=== PATIENT | female | born 1990 | race Caucasian/White ===

== ENCOUNTER 2018-01-03 21:29 | Emergency (ER) | payer OTHER ==
[~2018-01-03] VITALS: Ht 154.9 cm; Wt 47.2 kg
[2018-01-03 22:03] VITALS: BP 111/68
[2018-01-03] MEDS ORDERED: ACETAMINOPHEN-1 EAC1 ORAL (22:37)
[2018-01-03 22:40] VITALS: BP 111/68
--- NOTE | 2018-01-04 01:10 | Emergency Room Report ---
History of Present Illness General Chief Complaint: Pain Source: Patient Present Illness HPI 27-year-old female presents ED for evaluation of right toe pain. States that she went to gym today for many hours. States that she tried on some new shoes today and felt a sharp pain in her right fifth toe. Pain is persisted since. 7 out of 10, throbbing, nonradiating. Difficult to bear weight. No other injuries. No other aggravating relieving factors. Denies any other associated symptoms Allergies: Coded Allergies: PENICILLINS (Verified Allergy, Unknown, 01/03/18) Patient History Past Medical History: asthma, psych hx Past Surgical History: none Pertinent Family History: none Social History: Denies: smoking, alcohol use, drug use Last Menstrual Period: unknown Now: No : 0 Para: 0 Immunizations: UTD Reviewed Nursing Documentation: PMH: Agreed; PSxH: Agreed Nursing Documentation-PMH Hx Asthma: Yes History Of Psychiatric Problem: Yes - Anxiety, Depression Review of Systems All Other Systems: negative except mentioned in HPI Physical Exam Vital Signs Date Time Temp Pulse Resp B/P (MAP) Pulse Ox O2 Delivery O2 Flow Rate FiO2 01/03/18 21:58 97.8 73 15 111/68 98 Room Air 97.9 Sp02 EP Interpretation: reviewed, normal General Appearance: no apparent distress, alert, GCS 15, non-toxic Head: normocephalic Eyes: bilateral eye normal inspection, bilateral eye PERRL ENT: normal ENT inspection Neck: normal inspection Respiratory: normal inspection Cardiovascular #1: normal inspection Gastrointestinal: normal inspection Rectal: deferred Genitourinary: no CVA tenderness Musculoskeletal: tender - R 5th toe. mild swelling Neurologic: alert, oriented x3, responsive, motor strength/tone normal, sensory intact, speech normal Psychiatric: normal inspection Skin: normal inspection Lymphatic: normal inspection Medical Decision Making Diagnostic Impression: Primary Impression: Toe injury Qualified Codes: S99.921A - Unspecified injury of right foot, initial encounter ER Course Hospital Course 27-year-old F presents to ED complaining of R toe pain Differential diagnoses include: Fracture, dislocation, sprain, contusion Clinical course Patient placed on stretcher. After initial history and physical, I ordered xrays of R toes. patient declined pain meds Xrays read shows no acute fracture/dislocation. some minimal soft tissue swelling Discussed findings with patient. We will david tape toe for comfort. Patient states her father is a doctor and she will see him on Friday. Recommended ice, elevation. Diagnosis - toe injury Stable and discharged to home with prescription for Tylenol #3. apply ice, keep elevated. weight bear as tolerated. Followup with PMD. Return to ED if symptoms recur or worsen Other X-Ray Diagnostic Results Other X-Ray Diagnostic Results : X-Ray ordered: R toes # of Views/Limited Vs Complete: 3 View Indication: Pain EP Interpretation: Yes Interpretation: no dislocation, no fractures Impression: No acute disease Electronically Signed by: Electronically signed by Jacob Rao MD Last Vital Signs Date Time Temp Pulse Resp B/P (MAP) Pulse Ox O2 Delivery O2 Flow Rate FiO2 01/03/18 22:40 97.9 73 15 111/68 98 Room Air 97.9 Status: improved Disposition: HOME, SELF-CARE Condition: Stable Scripts Acetaminophen With Codeine (T#3) (TYLENOL #3 TAB*) Y Tab 1 TAB ORAL Q8H PRN for For Pain, #20 TAB Prov: Jacob Rao MD 01/03/18 Patient Instructions: Contusion, [id number] Jacob Rao MD Jan 04, 2018 01:10
== END 2018-01-03 22:40 | disposition home or self-care (01) ==
LOC: EMR 21:55
DX: S99.921A Unspecified injury of right foot, initial encounter (principal); X58.XXXA Exposure to other specified factors, initial encounter; Y93.A9 Activity, other involving cardiorespiratory exercise; Y92.39 Other specified sports and athletic area as the place of occurrence of the external cause; Z88.0 Allergy status to penicillin; J45.909 Unspecified asthma, uncomplicated
CPT/HCPCS: 99283

== ENCOUNTER 2018-01-26 08:44 | Emergency (ER) | payer OTHER ==
[~2018-01-26] VITALS: Ht 154.9 cm; Wt 47.6 kg
[~2018-01-26 08:44] MED LIST: ACETAMINOPHEN-1 EAC1 ORAL
[2018-01-26 08:45] VITALS: BP 130/90
[2018-01-26] MEDS ORDERED: Ketorolac 60mg Inj IM ONE (09:30)
[2018-01-26] MEDS ORDERED: Tetanus/Diptheria/Pertussis Vaccine 0.5ml Syr IM ONE (09:30)
[2018-01-26] MEDS ORDERED: Bacitracin Oint UD TOPIC ONE ×3 (09:30→11:00)
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
--- NOTE | 2018-01-26 10:20 | Diagnostic Imaging Report ---
Indication: left hand pain. Findings: 3 views of the left hand were obtained. Normal alignment is demonstrated. No acute fractures, erosions, or periosteal reaction are seen. Soft tissues are unremarkable. Impression: No acute findings.
[2018-01-26] MEDS ORDERED: IBUPROFEN800 MG ORAL (10:49)
[2018-01-26] MEDS ORDERED: CYCLOBENZAPRINE10 MG ORAL (10:49)
[2018-01-26 11:09] VITALS: BP 118/78
== END 2018-01-26 11:10 | disposition home or self-care (01) ==
LOC: EMR 09:08
DX: S50.812A Abrasion of left forearm, initial encounter (principal); S60.222A Contusion of left hand, initial encounter; S13.4XXA Sprain of ligaments of cervical spine, initial encounter; V43.52XA Car driver injured in collision with other type car in traffic accident, initial encounter; Y92.410 Unspecified street and highway as the place of occurrence of the external cause; Z23 Encounter for immunization
CPT/HCPCS: 90471; 90715; 96372; 99283